=== PATIENT | male | born 1975 | race Caucasian/White ===

== ENCOUNTER 2022-02-03 17:21 | Emergency (ER) | payer MEDICAID, OTHER ==
[~2022-02-03] VITALS: Ht 182.9 cm; Wt 72.7 kg
[2022-02-03 17:42] VITALS: BP 136/52
[2022-02-03] MEDS ORDERED: LORazepam 2 mg/ml vial IV ONE (18:05)
[2022-02-03] MEDS ORDERED: morphine 4 MG/ML inj SYRINge IV ONE (18:05)
[2022-02-03] MEDS ORDERED: IBUP-1986 PO (18:44)
== END 2022-02-03 18:58 | disposition home or self-care (01) ==
LOC: ER 17:22
DX: M24.412 Recurrent dislocation, left shoulder (principal); Z79.899 Other long term (current) drug therapy
CPT/HCPCS: 23650; 73020; 73030; 96374; 96375; 99284; J2060; J2270